=== PATIENT | female | born 1995 | race Caucasian/White ===

== ENCOUNTER 2024-02-04 12:01 | Emergency (ER) | payer SELFPAY ==
[2024-02-04 12:05] VITALS: BP 142/95; PULSE 74; RESP 18; TEMP 36.8; O2SAT 98; BMI 20.7
--- NOTE | 2024-02-04 12:13 | XR_ITS ---
[address] [address] Patient Name: ROSA STOVALL MRN: [id number] date: 1995 Sex: F Assigned Patient Location: ER Current Patient Location: ER Accession/Order Number: [id number] Exam Date: 02/04/2024 12:25 Report Date: 02/04/2024 12:52 At the request of: RENITA BECKHAM Procedure: XR chest 2V EXAM: XR chest 2V HISTORY: cough, influenza COMPARISON: Chest x-ray 03/20/2023 TECHNIQUE: PA, lateral chest x-ray FINDINGS: Lungs clear without infiltrate or edema. Normal heart size and mediastinal contour. No pleural effusion or pneumothorax. XR/XR chest 2V IMPRESSION: Stable chest x-ray, no acute findings. Clear lungs. Electronically authenticated by: KELSEY DARNELL Date: 02/04/2024 12:52
--- NOTE | 2024-02-04 12:17 | ED_ITS ---
HPI - General Adult General Chief complaint: Shortness of Breath/Dyspnea Stated complaint: SHORTNESS OF BREATH Time Seen by Provider: 02/04/24 12:09 Source: patient Mode of arrival: walk-in Limitations: no limitations History of Present Illness HPI narrative: Patient developed flu-like symptoms one week ago and then tested positive for influenza a few days later. Now she is concerned that an infection has settled into my chest and I might have pneumonia . She said that most of the flu-like symptoms, such as fatigue, weakness, nausea and headache, are gone.She admits to bilateral ear fullness and frequent harsh cough with chest congestion. She said that she is bringing up yellowish sputum/phlegm. No recent fever or chills. Appetite is better and she has been resting and drinking fluids. No personal history of asthma or other pulmonary disease Related Data Home Medications ?Medication ?Instructions ?Recorded ?Confirmed fluticasone propionate 50 2 spray intranasal Q12H 02/04/24 02/04/24 mcg/actuation nasal spray,suspension oseltamivir 45 mg capsule (Tamiflu) mg 02/04/24 Previous Rx's ?Medication ?Instructions ?Recorded albuterol sulfate 90 mcg/actuation 2 inh inhalation Q6H PRN shortness 02/04/24 aerosol inhaler of breath or wheezing #6.7 grams prednisone 20 mg tablet 40 mg (2 x 20 mg) PO DAILY 3 days 02/04/24 #6 tabs Allergies Allergy/AdvReac Type Severity Reaction Status Date / Time No Known Drug Allergies Allergy Verified 02/04/24 12:05 Exam Narrative Exam Narrative: Nurses notes and vital signs reviewed and patient is not hypoxic. Afebrile General: Well-appearing and in no apparent distress. Skin: Warm, dry, no pallor noted. No rash. Head: Normocephalic, atraumatic. Neck: Supple, non-tender. No cervical lymphadenopathy Eye: Pupils are equal, round and EOMI. No scleral icterus. Ears, Nose, Mouth, and Throat: TM are Slightly dull bilaterally, no posterior oropharynx erythema or exudate, uvula is mid-line. No nasal mucosal hypertrophy Oral mucosa is moist Cardiovascular: Regular Rate and Rhythm without murmur, gallop or rub. Respiratory: Notachypnea, accessory muscle use or respiratory distress. Lungs with central rhonchi and scattered end-expiratory mild wheezes Neurological: A&O x4. No cranial nerve dysfunction observed. No truncal ataxia. Moves all extremities. Sensation intact. Psychiatric: Cooperative and interactive. Normal mood and affect. Constitutional Vital Signs, click to edit/add: Last Vital Signs Temp 98.3 F 02/04/24 12:05 Pulse 78 02/04/24 12:31 Resp 18 02/04/24 12:31 BP 142/95 H 02/04/24 12:05 Pulse Ox 98 02/04/24 12:05 O2 Del Method Room Air 02/04/24 12:05 Course Vital Signs Vital signs: Vital Signs Temperature 98.3 F 02/04/24 12:05 Pulse Rate 74 02/04/24 12:05 Respiratory Rate 18 02/04/24 12:05 Blood Pressure 142/95 H 02/04/24 12:05 Pulse Oximetry 98 02/04/24 12:05 Oxygen Delivery Method Room Air 02/04/24 12:05 Temperature 98.3 F 02/04/24 12:05 Pulse Rate 78 02/04/24 12:31 Respiratory Rate 18 02/04/24 12:31 Blood Pressure 142/95 H 02/04/24 12:05 Pulse Oximetry 98 02/04/24 12:05 Oxygen Delivery Method Room Air 02/04/24 12:05 Medical Decision Making MDM Narrative Medical decision making narrative: Patient ordered to receive nebulized treatment with albuterol. 2 view CXR ordered. No pneumonia identified. She felt better after ED visit. Patient has normal vitals. She was informed of CXR result and discharged home with prescription for albuterol MDI and short course of steroids. Imaging Data Chest x-ray: Radiologist's impression: ITS Impressions Chest X-Ray 02/04/24 12:13 IMPRESSION: Stable chest x-ray, no acute findings. Clear lungs. Electronically authenticated by: KELSEY DARNELL Date: 02/04/2024 12:52 Discharge Plan Discharge Stand Alone Forms: Portal Instructions Chief Complaint: Shortness of Breath/Dyspnea Clinical Impression: Bronchitis Patient Disposition: Home, Self-Care Prescriptions / Home Meds: New prednisone 20 mg tablet 40 mg PO DAILY 3 Days Qty: 6 0RF albuterol sulfate 90 mcg/actuation HFA aerosol inhaler 2 inh inhalation Q6H PRN (Reason: shortness of breath or wheezing) Qty: 6.7 0RF No Action oseltamivir [Tamiflu] 45 mg capsule fluticasone propionate 50 mcg/actuation spray,suspension 2 spray INTRANASAL Q12H Patient Comments: not taking bc it doesnt help Print Language: Portuguese Instructions: How to Use a Metered-Dose Inhaler (ED), Acute Bronchitis (ED) Referrals: ALESHA JAMES [Primary Care Provider] - 1 week Discharge Date/Time: 02/04/24 13:21
[2024-02-04] MEDS: ALBUTEROL SULFATE 2.5 MG/3 ML VIAL NEB IH (12:30)
[2024-02-04 12:31] VITALS: PULSE 78; RESP 18
== END 2024-02-04 13:21 | disposition home or self-care (01) ==
PROVIDERS: Emergency Provider Emergency Medicine; PCP Family Medicine
DX: J40 Bronchitis, not specified as acute or chronic (principal)
CPT/HCPCS: 71046; 94640; 99283